=== PATIENT | female | born 1990 | race Caucasian/White ===

== ENCOUNTER 2023-10-26 17:15 | Observation (INO) | payer BC ==
[~2023-10-26] VITALS: Ht 165.1 cm; Wt 66.3 kg
[2023-10-26] MEDS ORDERED: PRENTAB9 PO (17:26)
[2023-10-26 17:33] VITALS: BP 112/58
[2023-10-26 19:11] VITALS: BP 103/55
[2023-10-26] MEDS: NIFEdipine 30MG XL TAB PO STA (19:11)
[2023-10-26 20:43] VITALS: BP 102/54
[2023-10-26 23:11] VITALS: BP 94/55
[2023-10-26] MEDS: NIFEdipine 10 MG CAP PO SCH (23:11)
[2023-10-27 02:50] VITALS: BP 96/53
[2023-10-27 02:51] VITALS: BP 96/53
[2023-10-27 08:32] VITALS: BP 107/55
[2023-10-27 10:34] VITALS: BP 98/53
[2023-10-27 13:08] VITALS: BP 103/51
[2023-10-27 17:11] VITALS: BP 105/53
== END 2023-10-28 03:00 | disposition home or self-care (01) ==
LOC: M LDO 17:15 → M LDI 18:53
PROVIDERS: ADMIT Obstetrics & Gynecology; ATTEND Obstetrics & Gynecology
DX: O60.03 Preterm labor without delivery, third trimester (principal); Z3A.33 33 weeks gestation of pregnancy; Z87.51 Personal history of pre-term labor; Z87.891 Personal history of nicotine dependence; Z88.8 Allergy status to other drugs, medicaments and biological substances
CPT/HCPCS: 59025; 87081; 96372; G0463; J1100

== ENCOUNTER 2023-11-01 17:45 | Outpatient (CLI) | payer BC ==
[~2023-11-01] VITALS: Ht 165.1 cm; Wt 66.6 kg
[~2023-11-01 17:45] MED LIST: PRENTAB9 PO
[2023-11-01] MEDS ORDERED: TUMS500C PO (18:08)
[2023-11-01] MEDS ORDERED: HOME MED LIST COMPLETE! XX SCH (18:10)
[2023-11-01 18:57] LABS: AMORPHOUS SEDIMENT MODERATE (NEGATIVE); APPEARANCE, URINE CLOUDY (CLEAR); BACTERIA, URINE AUTO 1+ (NEGATIVE); BILIRUBIN, URINE AUTO NEGATIVE (NEGATIVE); BLOOD, URINE BLOOD NEGATIVE (NEGATIVE); COLOR, URINE YELLOW (YELLOW); GLUCOSE, URINE (UA) AUTO NEGATIVE (NEGATIVE); KETONE, URINE AUTO NEGATIVE (NEGATIVE); LEUKOCYTE ESTERASE, URINE AUTO 2+ (NEGATIVE); MUCUS, URINE SMALL (NEGATIVE); NITRITE, URINE AUTO NEGATIVE (NEGATIVE); PROTEIN, URINE AUTO NEGATIVE (NEGATIVE); RBC, URINE AUTO 0 /HPF (0-3); SPECIFIC GRAVITY URINE AUTO 1.014 (1.002-1.035); SQUAMOUS EPITHELIAL CELL UR AU 2 /HPF (0-6); UROBILINOGEN, URINE AUTO 0.2 mg/dL (0.0-2.0); WBC, URINE AUTO 2 /HPF (0-3)
== END 2023-11-01 20:47 | disposition home or self-care (01) ==
LOC: M LDO 17:45
PROVIDERS: ATTEND Advanced Practice Midwife
DX: O47.03 False labor before 37 completed weeks of gestation, third trimester (principal); O99.513 Diseases of the respiratory system complicating pregnancy, third trimester; O36.0139 Maternal care for anti-D [Rh] antibodies, third trimester, other fetus; R01.1 Cardiac murmur, unspecified; J45.990 Exercise induced bronchospasm; Z87.51 Personal history of pre-term labor; Z3A.34 34 weeks gestation of pregnancy
CPT/HCPCS: 59025; 81001; 87086; G0463

== ENCOUNTER → 2024-10-23 | Outpatient (CLI) | payer BC ==
[~2024-10-23] MED LIST changes: +TUMS500C PO
[2024-10-23 12:13] LABS: BASO # 0.0 10^3/uL (0.0-0.2); BASO % 0.4 % (0.0-1.0); EOS # 0.2 10^3/uL (0.0-0.5); EOS % 3.6 % (0.0-3.0); LYMPH # 1.3 10^3/uL (1.5-5.0); LYMPH % 25.1 % (24.0-44.0); MONO # 0.3 10^3/uL (0.0-0.8); MONO % 6.2 % (2.0-8.0); NEUTROPHILS # 3.5 10^3/uL (1.5-8.5); NEUTROPHILS % 64.5 % (36.0-66.0); PLATELET COUNT, AUTOMATED 196 10^3/uL (150-450)
[2024-10-23 12:21] LABS: ERYTHROCYTE SEDIMENTATION RATE 3 mm/hr (0-20)
[2024-10-23 12:49] LABS: C REACTIVE PROTEIN QUANTITATIV < 0.50 MG/DL (<1.0)
[2024-10-23 12:51] LABS: ALT/SGPT 17 U/L (7.0-40); AST/SGOT 14 U/L (<34); CALCIUM LEVEL 8.5 MG/DL (8.5-10.1); CARBON DIOXIDE LEVEL 27 MMOL/L (20-31); CHLORIDE LEVEL 107 MMOL/L (98-107); CREATININE FOR GFR 0.79 MG/DL (0.55-1.30); GLOMERULAR FILTRATION RATE > 90.0 (>60); POTASSIUM SERUM 4.2 MMOL/L (3.5-5.1); SODIUM LEVEL 137 MMOL/L (136-145)
[2024-10-23 13:04] LABS: RHEUMATOID FACTOR QUANT < 3.5 IU/ML (<14)
== END ==
LOC: M LAB 11:03
PROVIDERS: ATTEND Registered Nurse
DX: M25.50 Pain in unspecified joint (principal)